=== PATIENT | female | born 1990 | race American Indian/Alaskan Native ===

== ENCOUNTER 2021-08-08 13:08 | Emergency (ER) | payer MEDICAID, OTHER ==
[2021-08-08 13:18] VITALS: BP 125/78
--- NOTE | 2021-08-08 15:16 | Emergency Department Report ---
ED Headache HPI - General Chief Complaint: Headache Stated Complaint: SHORTNESS OF BREATH Source: patient, RN notes reviewed Exam Limitations: no limitations - History of Present Illness Initial Comments: Patient is a 30-year-old -[place] female with no past medical history who presents to the ED with complaint of acute onset persistent diffuse headache with nausea for the last 24 hours. Patient states that she initially started taking [id number] Tylenol for headache but this did not help. Patient however states that about 12 hours ago she continued to take Tylenol and woke up with a more improved symptoms. Patient however decided come to the ED for evaluation. Patient denies dizziness, syncope, neck pain, chest pain, shortness of breath, sore throat, nasal and sinus congestion, vision loss, seizures or lightheadedness, nausea and vomiting. Timing/Duration: 24 hours Quality: severe, constant, pressure Head Injury Location: global Recent Head Trauma: no recent headache/trauma Modifying Factors: improves with: medication, other Associated Symptoms: denies symptoms. denies: confusion, fatigue, facial pain, fever/chills, flushing, loss of consciousness, nasal congestion, nasal drainage, numbness in legs/feet, seizures, sinus infection, stiff neck, vision changes, weakness Allergies/Adverse Reactions: Allergies No Known Allergies Allergy (Verified 08/08/21 14:24) Home Medications: Ambulatory Orders Butalb/Acetamin/Caff 50-325-40 [Fioricet 50-325-40] 1 - 2 tab PO Q6HR PRN #15 tab 08/08/21 Ibuprofen [Motrin] 800 mg PO Q8HR PRN #30 tablet 08/08/21 Promethazine [Phenergan] 25 mg PO Q8HR PRN #24 tab 08/08/21 ED Review of Systems ROS: Stated complaint: SHORTNESS OF BREATH Other details as noted in HPI Constitutional: denies: chills, fever Eyes: denies: eye pain, eye discharge, vision change ENT: denies: ear pain, throat pain, congestion Respiratory: denies: cough, shortness of breath, wheezing Cardiovascular: denies: chest pain, palpitations Endocrine: no symptoms reported Gastrointestinal: denies: abdominal pain, nausea, vomiting, diarrhea Genitourinary: denies: urgency, dysuria, discharge Musculoskeletal: denies: back pain, joint swelling, arthralgia Skin: denies: rash, lesions Neurological: headache. denies: weakness, paresthesias Psychiatric: denies: anxiety, depression Hematological/Lymphatic: denies: easy bleeding, easy bruising ED Past Medical Hx - Past Medical History Previous Medical History?: Yes Additional medical history: crohns. Vaginal delivery x 3 - Surgical History Past Surgical History?: Yes Hx Appendectomy: Yes Additional Surgical History: intestinal surgery - Social History Smoking Status: Never Smoker Substance Use Type: None - Medications Home Medications: Home Medications Medication Instructions Recorded Confirmed Last Taken Type Butalb/Acetamin/Caff 50-325-40 1 - 2 tab PO Q6HR PRN #15 tab 08/08/21 Unknown Rx [Fioricet 50-325-40] Ibuprofen [Motrin] 800 mg PO Q8HR PRN #30 tablet 08/08/21 Unknown Rx Promethazine [Phenergan] 25 mg PO Q8HR PRN #24 tab 08/08/21 Unknown Rx ED Physical Exam - General Limitations: No Limitations General appearance: alert, in no apparent distress - Head Head exam: Present: atraumatic, normocephalic, normal inspection - Eye Eye exam: Present: normal appearance, PERRL, EOMI Pupils: Present: normal accommodation - ENT ENT exam: Present: normal exam, normal orophraynx, mucous membranes moist, TM's normal bilaterally - Neck Neck exam: Present: normal inspection, full ROM. Absent: tenderness, meningismus - Respiratory Respiratory exam: Present: normal lung sounds bilaterally. Absent: respiratory distress, wheezes, rales, stridor, chest wall tenderness, accessory muscle use, decreased breath sounds, prolonged expiratory - Cardiovascular Cardiovascular Exam: Present: normal rhythm, tachycardia, normal heart sounds. Absent: systolic murmur, diastolic murmur, rubs, gallop - GI/Abdominal GI/Abdominal exam: Present: soft, normal bowel sounds. Absent: tenderness, guarding, rigid, hyperactive bowel sounds, hypoactive bowel sounds - Extremities Exam Extremities exam: Present: normal inspection, full ROM, normal capillary refill - Back Exam Back exam: Present: normal inspection, full ROM. Absent: tenderness, CVA tenderness (R), CVA tenderness (L), muscle spasm, paraspinal tenderness, vertebral tenderness - Neurological Exam Neurological exam: Present: alert, oriented X3, CN II-XII intact, normal gait, reflexes normal - Psychiatric Psychiatric exam: Present: normal affect, normal mood - Skin Skin exam: Present: warm, dry, intact, normal color. Absent: rash ED Course Vital Signs 08/08/21 13:17 Temperature 98.2 F Pulse Rate 111 H Respiratory 18 Rate Blood Pressure 125/78 O2 Sat by Pulse 99 Oximetry ED Medical Decision Making - Medical Decision Making This is a 30-year-old -[place] female with no past medical history who presents to the ED with complaint of acute onset persistent diffuse headache with nausea for the last 24 hours. Patient states that she initially started taking [id number] Tylenol for headache but this did not help. Patient however states that about 12 hours ago she continued to take Tylenol and woke up with a more improved symptoms. Patient however decided come to the ED for evaluation. In the ED, patient is alert and oriented x3 and is not in any distress. Patient is resting comfortably in the room with her children. Patient stated her headache is resolved after she took Tylenol 1000 mg tablet prior to arrival in the ED. Patient admits to having had a lot of stressors at home yesterday before the onset of this symptoms. Patient was therefore discharged home and advised to follow-up with her primary care physician in 3 to 5 days for reevaluation or return to the ED immediately if symptoms get worse. - Differential Diagnosis Cluster headache; tension headache; migraine headaches; anxiety Critical care attestation.: If time is entered above; I have spent that time in minutes in the direct care of this critically ill patient, excluding procedure time. ED Disposition Clinical Impression: Anxiety as acute reaction to exceptional stress Tension-type headache Qualifiers: Headache chronicity pattern: acute headache Intractability: not intractable Qualified Code(s): G44.209 - Tension-type headache, unspecified, not intractable Disposition: 01 HOME / SELF CARE / HOMELESS Is pt being admited?: No Does the pt Need Aspirin: No Condition: Stable Instructions: Cluster Headache, [id number], Tension Headache, Adult, [id number] Additional Instructions: Take medication with food, drink plenty of fluids and follow-up with your primary care physician in 7 to 10 days for reevaluation. Return to the ED immediately if symptoms get worse. Prescriptions: Butalb/Acetamin/Caff 50-325-40 [Fioricet 50-325-40] 1 - 2 tab PO Q6HR PRN #15 ta b PRN Reason: Headache Ibuprofen [Motrin] 800 mg PO Q8HR PRN #30 tablet PRN Reason: Pain , Severe (7-10) Promethazine [Phenergan] 25 mg PO Q8HR PRN #24 tab PRN Reason: Nausea Referrals: [facility] [Provider Group] - 3-5 Days Time of Disposition: 15:31 Print Language: HUNGARIAN
== END 2021-08-08 16:00 | disposition home or self-care (01) ==
LOC: ED 13:08
DX: F41.1 Generalized anxiety disorder (principal); F43.0 Acute stress reaction; G44.209 Tension-type headache, unspecified, not intractable
CPT/HCPCS: 99282